=== PATIENT | female | born 1960 | race Caucasian/White ===

== ENCOUNTER 2020-04-09 22:52 | Emergency (ER) | payer OTHER ==
[~2020-04-09] VITALS: Ht 170.2 cm; Wt 65.0 kg
[2020-04-09 22:57] VITALS: BP 146/125
[2020-04-09 23:39] LABS: BASOPHILS # (AUTO) 0.01 x10^3/uL (0-0.1); BASOPHILS % (AUTO) 0 % (0-1); EOSINOPHILS # (AUTO) 0.01 x10^3/uL (0-0.4); EOSINOPHILS % (AUTO) 0 % (1-7); LYMPHOCYTES # (AUTO) 0.68 x10^3/uL (1-3.4); LYMPHOCYTES % (AUTO) 5 % (22-44); MD NO; MEAN CORPUSCULAR HEMOGLOBIN 30.3 pg (27.0-34.8); MEAN CORPUSCULAR HGB CONC 33.4 g/dL (32.4-35.8); MEAN PLATELET VOLUME 8.1 fL (7.4-10.4); MONOCYTES # (AUTO) 0.34 x10^3/uL (0.2-0.8); MONOCYTES % (AUTO) 3 % (2-9); NEUTROPHILS # (AUTO) 12.07 x10^3/uL (1.8-6.8); NEUTROPHILS % (AUTO) 92 % (42-75); PLATELET COUNT 289 x10^3/uL (130-400); RED BLOOD COUNT 4.85 x10^6/uL (3.82-5.3); RED CELL DISTRIBUTION WIDTH 13.1 % (9.6-15.2)
[2020-04-09 23:48] LABS: ALANINE AMINOTRANSFERASE 57 U/L (12-78); ALBUMIN 3.7 g/dL (3.4-5.0); ANION GAP 8 mmol/L (5-15); CALCIUM 8.9 mg/dL (8.5-10.1); CHLORIDE 111 mmol/L (98-107); CREATININE 0.92 mg/dL (0.55-1.02)
[2020-04-09 23:51] LABS: ALKALINE PHOSPHATASE 41 U/L (45-117); BILIRUBIN,TOTAL 0.6 mg/dL (0.2-1.0); TOTAL PROTEIN 7.9 g/dL (6.4-8.2)
[2020-04-10 00:37] LABS: MICROSCOPIC NOT IND
[2020-04-10] MEDS ORDERED: PROMETHAZINE 25 MG/ML, 1ML ONE (00:49)
--- NOTE | 2020-04-10 00:57 | NUR ---
PT VOMITING LOUDLY, YELLING OUT FROM BED. ERP NOTIFIED. NEW ORDERS RECEIVED AND ADMINISTERED. ERP AT BEDSIDE AT THIS TIME.
[2020-04-10] MEDS ORDERED: PROMETHAZINE 25 MG/ML, 1ML IM ONE (01:00)
== END 2020-04-10 01:23 | disposition home or self-care (01) ==
LOC: ED 04-10 01:19
DX: K52.9 Noninfective gastroenteritis and colitis, unspecified (principal)
CPT/HCPCS: 36415; 80053; 81003; 83690; 85025; 96372; 99283; J2550

== ENCOUNTER 2020-11-03 21:27 | Emergency (ER) | payer MEDICARE ==
[~2020-11-03] VITALS: Ht 170.2 cm; Wt 58.8 kg
[2020-11-03 21:36] VITALS: BP 140/92
[2020-11-03] MEDS ORDERED: DIPH,PERTUSS(ACELL),TET VAC/PF 0.5 ML IM-VACC ONE ×2 (22:00→22:07)
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
--- NOTE | 2020-11-03 22:20 | NUR ---
CHEF DE CUISINE AT BEDSIDE FOR WOUND CARE.
--- NOTE | 2020-11-03 22:37 | NUR ---
Patient given discharge instructions and they have confirmed that they understand the instructions, all questions answered. Patient stable and ambulatory with steady gait from ED to private vehicle.
== END 2020-11-03 22:38 | disposition home or self-care (01) ==
LOC: ED 21:57
DX: S61.211A Laceration without foreign body of left index finger without damage to nail, initial encounter (principal); F17.200 Nicotine dependence, unspecified, uncomplicated; X58.XXXA Exposure to other specified factors, initial encounter; Y93.89 Activity, other specified; Y92.89 Other specified places as the place of occurrence of the external cause; Y99.8 Other external cause status
CPT/HCPCS: 12041; 90471; 90715; 99284

== ENCOUNTER → 2021-01-24 | Outpatient (CLI) | payer MEDICARE ==
[~2021-01-24] MED LIST: GADOTERATE 10 MMOL/20 ML VIAL ONE
== END | disposition home or self-care (01) ==
LOC: CFH 10:37
PROVIDERS: ATTEND Surgery
DX: N63.11 Unspecified lump in the right breast, upper outer quadrant (principal); D05.91 Unspecified type of carcinoma in situ of right breast
CPT/HCPCS: 77049; A9575; C8908

== ENCOUNTER 2021-01-30 12:12 | Outpatient (CLI) | payer MEDICARE ==
[2021-01-30] MEDS ORDERED: LIDOCAINE 1%-EPI 1:100K, 20ML ONE (15:01)
[2021-01-30] MEDS ORDERED: SODIUM BICARBONATE 4.0%, 5ML ONE (15:01)
== END 2021-01-30 23:59 | disposition home or self-care (01) ==
LOC: CFH 12:12
PROVIDERS: ATTEND Surgery
DX: D05.81 Other specified type of carcinoma in situ of right breast (principal); F41.1 Generalized anxiety disorder; F31.9 Bipolar disorder, unspecified; I10 Essential (primary) hypertension; J44.9 Chronic obstructive pulmonary disease, unspecified; F10.21 Alcohol dependence, in remission; Z88.8 Allergy status to other drugs, medicaments and biological substances; Z79.899 Other long term (current) drug therapy; Z87.891 Personal history of nicotine dependence; Z98.890 Other specified postprocedural states
CPT/HCPCS: 19285; 38505; 76942; 88305

== ENCOUNTER 2021-02-02 13:24 | Outpatient (CLI) | payer MEDICARE ==
[2021-02-02] MEDS ORDERED: GABA-826 PO (14:28)
[2021-02-02] MEDS ORDERED: OXYC30TA66 PO (14:28)
[2021-02-02] MEDS ORDERED: CARB200T PO (14:28)
[2021-02-02] MEDS ORDERED: LISI-167 PO (14:28)
[2021-02-02] MEDS ORDERED: CLON-364 PO (14:28)
[2021-02-02] MEDS ORDERED: METO25TA35 PO (14:28)
[2021-02-02] MEDS ORDERED: OXYC10TA6 PO (14:28)
[2021-02-02 14:40] LABS: ALANINE AMINOTRANSFERASE 13 U/L (12-78); ALBUMIN 3.8 g/dL (3.4-5.0); ANION GAP 4 mmol/L (5-15); CALCIUM 9.2 mg/dL (8.5-10.1); CHLORIDE 107 mmol/L (98-107); CREATININE 0.78 mg/dL (0.55-1.02)
[2021-02-02 14:42] LABS: ALKALINE PHOSPHATASE 68 U/L (45-117); BILIRUBIN,TOTAL 0.2 mg/dL (0.2-1.0); TOTAL PROTEIN 7.5 g/dL (6.4-8.2)
== END 2021-02-02 23:59 | disposition home or self-care (01) ==
LOC: STAR 13:24
PROVIDERS: ATTEND Surgery
DX: Z01.812 Encounter for preprocedural laboratory examination (principal); Z20.822 Contact with and (suspected) exposure to COVID-19; D05.11 Intraductal carcinoma in situ of right breast
CPT/HCPCS: 36415; 80053; 93005; U0003

== ENCOUNTER 2021-02-08 07:19 | Day surgery (SDC) | payer MEDICARE ==
[~2021-02-08] VITALS: Ht 167.6 cm; Wt 59.6 kg
[~2021-02-08 07:19] MED LIST changes: +BUPIVACAINE/PF 0.5% ONE; +CARB200T PO; +CLON-364 PO; +EPINEPHRINE 1 MG/ML, 1ML ONE; +GABA-826 PO; -GADOTERATE 10 MMOL/20 ML VIAL ONE; +HEPARIN 1,000 UNITS/ML, 10ML ONE; +LISI-167 PO; +METO25TA35 PO; +OXYC10TA6 PO; +OXYC30TA66 PO
[2021-02-08] MEDS ORDERED: LACTATED RINGERS 1,000 ML IV SCH (08:00)
[2021-02-08] MEDS ORDERED: LIDOCAINE-MPF 1%, 2ML INFIL ONE (08:00)
[2021-02-08] MEDS ORDERED: CHLORHEXIDINE 15 ML UDC PO ONE (08:00)
[2021-02-08 08:06] VITALS: BP 130/86
[2021-02-08] MEDS ORDERED: ONDA4TAB7 PO (11:03)
[2021-02-08] MEDS ORDERED: FENTANYL PF 100 MCG/2ML ONE (11:17)
[2021-02-08] MEDS ORDERED: ACETAMINOPHEN 650 MG/20.3 ML UDC ONE (11:17)
[2021-02-08] MEDS ORDERED: OXYcodone 5 MG/5 ML ORAL.SOL UDC ONE (11:17)
[2021-02-08] MEDS ORDERED: MEPERIDINE/PF 25MG/0.5ML IVPush PRN (11:30)
[2021-02-08] MEDS ORDERED: HYDROmorphone 1 MG/ML, 1ML INJ IVPush PRN (11:30)
[2021-02-08] MEDS ORDERED: ACETAMINOPHEN 325 MG TABLET PO PRN (11:30)
[2021-02-08] MEDS ORDERED: PROMETHAZINE 25 MG/ML, 1ML IVPush PRN (11:30)
[2021-02-08] MEDS ORDERED: OXYcodone 5 MG/5 ML ORAL.SOL UDC PO PRN (11:30)
[2021-02-08] MEDS ORDERED: MIDAZOLAM 1 MG/ML, 2ML IV PRN (11:30)
[2021-02-08] MEDS ORDERED: ONDANSETRON 2MG/ML, 2ML IVPush PRN (11:30)
[2021-02-08] MEDS ORDERED: FENTANYL PF 100 MCG/2ML IV PRN (11:30)
== END 2021-02-08 12:24 | disposition home or self-care (01) ==
LOC: OUT 07:19
PROVIDERS: ATTEND Surgery
DX: C50.411 Malignant neoplasm of upper-outer quadrant of right female breast (principal); I10 Essential (primary) hypertension; J44.9 Chronic obstructive pulmonary disease, unspecified; F32.9 Major depressive disorder, single episode, unspecified; F41.9 Anxiety disorder, unspecified; Z17.1 Estrogen receptor negative status [ER-]; Z79.891 Long term (current) use of opiate analgesic; Z79.899 Other long term (current) drug therapy; Z87.891 Personal history of nicotine dependence; Z88.8 Allergy status to other drugs, medicaments and biological substances; Z80.0 Family history of malignant neoplasm of digestive organs
CPT/HCPCS: 36561; 71045; 77001; C1788; J0171; J1644; J3010; J7120

== ENCOUNTER 2021-02-09 15:44 | Outpatient (CLI) | payer MEDICARE ==
[~2021-02-09 15:44] MED LIST changes: -BUPIVACAINE/PF 0.5% ONE; -EPINEPHRINE 1 MG/ML, 1ML ONE; +FENTANYL PF 250 MCG/5ML ONE; -HEPARIN 1,000 UNITS/ML, 10ML ONE; +MIDAZOLAM 1 MG/ML, 2ML ONE; +ONDA4TAB7 PO
== END 2021-02-09 23:59 | disposition home or self-care (01) ==
LOC: CVU 15:44
PROVIDERS: ATTEND Internal Medicine Hematology & Oncology
DX: I36.1 Nonrheumatic tricuspid (valve) insufficiency (principal); C50.811 Malignant neoplasm of overlapping sites of right female breast; I10 Essential (primary) hypertension; J44.9 Chronic obstructive pulmonary disease, unspecified; F41.9 Anxiety disorder, unspecified
CPT/HCPCS: 93306; 93356; J2250; J3010

== ENCOUNTER → 2021-04-06 | Outpatient (CLI) | payer MEDICARE ==
[~2021-04-06] MED LIST changes: -FENTANYL PF 250 MCG/5ML ONE; -MIDAZOLAM 1 MG/ML, 2ML ONE
== END | disposition home or self-care (01) ==
LOC: CFH 14:05
PROVIDERS: ATTEND Internal Medicine Hematology & Oncology
DX: C50.811 Malignant neoplasm of overlapping sites of right female breast (principal); I10 Essential (primary) hypertension; J44.9 Chronic obstructive pulmonary disease, unspecified; N63.10 Unspecified lump in the right breast, unspecified quadrant; F41.9 Anxiety disorder, unspecified
CPT/HCPCS: 76642

== ENCOUNTER 2021-07-05 08:19 | Outpatient (CLI) | payer MEDICARE ==
[2021-07-05] MEDS ORDERED: GADOTERATE 7.5 MMOL/15 ML VIAL ONE (09:30)
== END 2021-07-05 23:59 | disposition home or self-care (01) ==
LOC: CFH 08:19
PROVIDERS: ATTEND Internal Medicine Hematology & Oncology
DX: C50.411 Malignant neoplasm of upper-outer quadrant of right female breast (principal); C50.811 Malignant neoplasm of overlapping sites of right female breast; F41.9 Anxiety disorder, unspecified; J44.9 Chronic obstructive pulmonary disease, unspecified; I10 Essential (primary) hypertension
CPT/HCPCS: 76642; 77049; 77061; 77065; A9575; C8937; C8908; G0279